=== PATIENT | female | born 1980 | race Asian ===

== ENCOUNTER 2021-09-05 12:18 | Outpatient (CLI) | payer BC, OTHER ==
[~2021-09-05] VITALS: Ht 177.8 cm; Wt 93.4 kg
== END 2021-09-05 20:34 | disposition home or self-care (01) ==
LOC: INF 12:18
PROVIDERS: ATTEND Internal Medicine
DX: U07.1 COVID-19 (principal); Z23 Encounter for immunization
CPT/HCPCS: 96365; M0244

== ENCOUNTER 2021-10-15 14:48 | Outpatient (CLI) | payer BC | END 2021-10-15 19:28 | disposition home or self-care (01) | LOC: LABW 14:48 | PROVIDERS: ATTEND Nurse Practitioner Primary Care | DX: R19.7 Diarrhea, unspecified (principal) | CPT/HCPCS: 83630; 87015; 87045; 87324; 87328; 87329; 87449; 87899 ==

== ENCOUNTER 2021-10-30 11:02 | Outpatient (CLI) | payer BC | END 2021-10-30 20:41 | disposition home or self-care (01) | LOC: CT 11:02 | PROVIDERS: ATTEND Nurse Practitioner Primary Care | DX: R10.9 Unspecified abdominal pain (principal) | CPT/HCPCS: 36415; 82565; 84520; Q9963 ==

== ENCOUNTER 2022-04-28 10:03 | Outpatient (CLI) | payer BC | END 2022-04-28 19:29 | disposition home or self-care (01) | LOC: RAD 10:03 | PROVIDERS: ATTEND Nurse Practitioner Primary Care | DX: M79.671 Pain in right foot (principal); M79.672 Pain in left foot ==

== ENCOUNTER 2022-09-30 14:22 | Outpatient (CLI) | payer OTHER | END 2022-09-30 18:59 | disposition home or self-care (01) | LOC: RESP 14:22 | PROVIDERS: ATTEND Internal Medicine Cardiovascular Disease | DX: I10 Essential (primary) hypertension (principal) ==

== ENCOUNTER 2023-01-01 08:14 | Emergency (ER) | payer OTHER ==
[~2023-01-01] VITALS: Ht 177.8 cm; Wt 89.8 kg
[2023-01-01 08:14] VITALS: TEMP 98
[2023-01-01 09:59] LABS: PLATELET COUNT 244 K/uL (152-353)
[2023-01-01 10:05] LABS: POTASSIUM 4.1 mmol/L (3.6-5.2)
[2023-01-01 12:55] VITALS: BP 122/76
== END 2023-01-01 12:55 | disposition home or self-care (01) ==
LOC: ED 08:14
PROVIDERS: Emergency Medicine
DX: T14.8XXA Other injury of unspecified body region, initial encounter (principal); V89.2XXA Person injured in unspecified motor-vehicle accident, traffic, initial encounter
CPT/HCPCS: 80053; 81000; 84484; 85027; 96372; 96374; 96375; 99284; J1885; J2270; J2405; Q9963

== ENCOUNTER 2023-01-01 13:06 | Emergency (ER) | payer OTHER ==
[~2023-01-01] VITALS: Ht 177.8 cm; Wt 89.8 kg
[2023-01-01 17:05] VITALS: BP 126/70; TEMP 98.1
== END 2023-01-01 17:10 | disposition home or self-care (01) ==
LOC: ED 13:06
PROC: 2W3MX1Z Immobilization of Left Lower Extremity using Splint (ICD-10-PCS; principal; 2023-01-01)
DX: S83.92XA Sprain of unspecified site of left knee, initial encounter (principal); V89.2XXA Person injured in unspecified motor-vehicle accident, traffic, initial encounter; F17.210 Nicotine dependence, cigarettes, uncomplicated
CPT/HCPCS: 99282

== ENCOUNTER 2023-03-26 14:52 | Outpatient (CLI) | payer BC | END 2023-03-26 19:17 | disposition home or self-care (01) | LOC: RAD 14:52 | PROVIDERS: ATTEND Physician Assistant | DX: M25.512 Pain in left shoulder (principal); M25.551 Pain in right hip; M25.552 Pain in left hip ==